=== PATIENT | female | born 1960 | race Caucasian/White ===

== ENCOUNTER 2021-06-14 10:00 | Day surgery (SDC) | payer OTHER ==
[~2021-06-14 10:00] MED LIST: Midazolam 1 MG/ML 2 ML SDV ONE; Propofol 200 MG/20 ML SDV ONE; fentaNYL 100 MCG/2 ML SDV ONE
[2021-06-14] MEDS ORDERED: Sodium Chloride 0.9% 1,000 ML IV SCH (10:45)
[2021-06-14] MEDS ORDERED: Propofol 200 MG/20 ML SDV ONE (13:15)
[2021-06-14 14:02] VITALS: BP 135/74; PULSE 69
--- NOTE | 2021-06-16 10:25 | OR ---
DATE OF PROCEDURE: 06/14/2021 SURGEON: Aaron Singleton MD PROCEDURE: Colonoscopy. FINDINGS: 1. Transverse colon polyp #1, approximately 5 mm, completely removed using cold biopsy forceps. 2. Sigmoid colon polyp #1, completely removed using cold biopsy forceps. 3. Sigmoid colon polyp #2, approximately 8 mm, completely removed using endoscopic mucosal resection technique. 4. Sigmoid colon polyp #3, approximately 8 mm, completely removed using hot snare wire device. COMPLICATIONS: None. PODIATRIST ORTHOPEDIC: None. ANESTHESIA: MAC. PREOPERATIVE DIAGNOSIS: Positive Cologuard. POSTOPERATIVE DIAGNOSIS: Positive Cologuard. RISKS: Risks, benefits, alternatives, and limitations including, but not limited to infection, bleeding, perforation, false positive, false negatives were explained to the patient and they wished to proceed. PROCEDURE IN DETAIL: The patient was placed in left lateral decubitus position. Digital rectal exam was performed without abnormality. Scope was introduced and advanced atraumatically to the ileocecal valve. A photo was taken. The scope was brought back to the ascending, transverse, descending colon, and retroflexed. The aforementioned polyps were all identified and completely removed as described above. With respect to endoscopic mucosal resection technique, the sigmoid colon polyp #2 was completely elevated using Belkis ink in all 4 quadrants and subsequently transected using hot snare wire device. Greater than 8 minutes was spent removing the scope. No abnormalities on retroflexion. Prep was acceptable, approximately 90% of luminal surface could be seen. The patient tolerated procedure well. Aaron Singleton MD /[id number]
== END 2021-06-14 14:14 | disposition home or self-care (01) ==
LOC: JP.SDS 10:00
PROVIDERS: ATTEND Surgery
DX: D12.5 Benign neoplasm of sigmoid colon (principal); J44.9 Chronic obstructive pulmonary disease, unspecified; I25.10 Atherosclerotic heart disease of native coronary artery without angina pectoris; I10 Essential (primary) hypertension; E03.9 Hypothyroidism, unspecified; E11.9 Type 2 diabetes mellitus without complications; Z88.5 Allergy status to narcotic agent
CPT/HCPCS: 45380; 45385; 45390; J2250; J2704; J3010; J7030

== ENCOUNTER 2021-09-09 04:18 | Emergency (ER) | payer OTHER ==
[2021-09-09] MEDS ORDERED: Aspirin 81 MG Tab.Chew PO ONE (04:28)
[2021-09-09] MEDS ORDERED: Nitroglycerin 0.4 MG Tab.SL SL PRN (04:40)
[2021-09-09] MEDS ORDERED: Amiodarone 150 MG/3 ML SDV IVPUSH ONE (05:22)
[2021-09-09] MEDS ORDERED: Metoprolol Tartrate 25 MG Tab PO SCH (06:30)
[2021-09-09 07:00] LABS: CORONAVIRUS COVID-19 NAA NEGATIVE (NEGATIVE)
[2021-09-09 07:29] VITALS: PULSE 94
[2021-09-09] MEDS ORDERED: Potassium Chloride 20 MEQ Tab.ER PO ONE (07:29)
[2021-09-09] MEDS ORDERED: Magnesium Sulfate/Water 2 GM in Premix Bag 1 BAG IV ONE (07:29)
[2021-09-09] MEDS ORDERED: atorvaSTATin 20 MG Tab PO SCH (09:00)
[2021-09-09] MEDS ORDERED: amLODIPine 5 MG Tab PO SCH (09:00)
[2021-09-09] MEDS ORDERED: Lisinopril 10 MG Tab PO SCH (09:00)
[2021-09-09 11:24] VITALS: BP 113/46
[2021-09-09] MEDS ORDERED: Amiodarone 200 MG Tab PO ONE (12:40)
[2021-09-09] MEDS ORDERED: Levothyroxine 100 MCG Tab PO SCH (18:00)
[2021-09-09] MEDS ORDERED: Clopidogrel 75 MG Tab PO SCH (18:00)
== END 2021-09-09 13:40 | disposition home or self-care (01) ==
LOC: JP.ED 04:18
DX: I20.0 Unstable angina (principal); I10 Essential (primary) hypertension; E03.9 Hypothyroidism, unspecified; I47.2 Ventricular tachycardia; I24.9 Acute ischemic heart disease, unspecified; E78.5 Hyperlipidemia, unspecified; E10.59 Type 1 diabetes mellitus with other circulatory complications; I25.10 Atherosclerotic heart disease of native coronary artery without angina pectoris; I25.2 Old myocardial infarction; E05.90 Thyrotoxicosis, unspecified without thyrotoxic crisis or storm; Z88.6 Allergy status to analgesic agent; Z79.82 Long term (current) use of aspirin; Z79.899 Other long term (current) drug therapy; Z79.02 Long term (current) use of antithrombotics/antiplatelets; Z20.822 Contact with and (suspected) exposure to COVID-19
CPT/HCPCS: 0241U; 36415; 71045; 80053; 83735; 84439; 84443; 84484; 85025; 85379; 86140; 93005; 96365; 96366; 96368; 99285; A9270; J0282; J3475; J7060

== ENCOUNTER 2024-02-21 10:20 | Emergency (ER) | payer OTHER ==
[2024-02-21 15:22] VITALS: BP 189/64; PULSE 73
== END 2024-02-21 16:26 | disposition home or self-care (01) ==
LOC: JP.ED 10:20
DX: S39.012A Strain of muscle, fascia and tendon of lower back, initial encounter (principal); S80.02XA Contusion of left knee, initial encounter; I10 Essential (primary) hypertension; I25.10 Atherosclerotic heart disease of native coronary artery without angina pectoris; E78.00 Pure hypercholesterolemia, unspecified; I25.2 Old myocardial infarction; J44.9 Chronic obstructive pulmonary disease, unspecified; E03.9 Hypothyroidism, unspecified; E10.9 Type 1 diabetes mellitus without complications; Z90.49 Acquired absence of other specified parts of digestive tract; Z95.5 Presence of coronary angioplasty implant and graft; Z79.899 Other long term (current) drug therapy; Z79.890 Hormone replacement therapy; Z79.82 Long term (current) use of aspirin; Z79.4 Long term (current) use of insulin; Z88.6 Allergy status to analgesic agent; W01.0XXA Fall on same level from slipping, tripping and stumbling without subsequent striking against object, initial encounter; Y92.009 Unspecified place in unspecified non-institutional (private) residence as the place of occurrence of the external cause
CPT/HCPCS: 73562-26-LT; 73562-LT; 99283